=== PATIENT | female | born 1940 | race Caucasian/White ===

== ENCOUNTER → 2016-11-09 13:05 | Outpatient (CLI) | payer MEDICARE, OTHER ==
[2010-02-15 14:57] VITALS: BMI 21.3
== END | disposition home or self-care (01) ==
LOC: D.MAMMO 10:45
DX: Z12.31 Encounter for screening mammogram for malignant neoplasm of breast (principal)

== ENCOUNTER 2017-12-10 19:00 | Outpatient (CLI) | payer MEDICARE, OTHER ==
[2010-02-15 14:57] VITALS: BMI 21.3
== END 2017-12-10 23:59 | disposition home or self-care (01) ==
LOC: D.MAMMO 19:00
DX: Z12.31 Encounter for screening mammogram for malignant neoplasm of breast (principal)

== ENCOUNTER 2018-08-20 19:58 | Emergency (ER) | payer MEDICARE, OTHER ==
[~2018-08-20] VITALS: Ht 160 cm; Wt 59.1 kg
[2018-08-20 20:01] VITALS: Ht 160 cm; Wt 59.1 kg
[2018-08-20] MEDS ORDERED: TOPROL XL25 MG PO (20:04)
[2018-08-20] MEDS ORDERED: LEVO-T50 MCG PO (20:05)
[2018-08-20] MEDS ORDERED: NORVASC10 MG PO (20:05)
[2018-08-20 21:05] LABS: BASOPHILS 0.4 % (0-2); EOSINOPHILS 6.6 % (0-7); HEMATOCRIT 43.5 % (36.0-48.0); HEMOGLOBIN 15.3 g/dL (12-16); IMMATURE GRANULOCYTES 0.4 % (0-5); LYMPHOCYTES 52.7 % (15-50); MCH 31.9 pg (26.0-34.0); MCHC 35.2 g/dL (31.0-37.0); MCV 90.8 fL (80.0-100.0); MEAN PLATELET VOLUME 9.5 fL (7.4-10.4); MONOCYTES 7.7 % (2-11); NEUTROPHILS 32.2 % (40-80); PLATELET COUNT 432 10x3/uL (130-400); RBC 4.79 10x6/uL (4.00-5.40); RDW 12.8 % (11.5-14.5); WBC 10.9 10x3/uL (4.8-10.8)
[2018-08-20 21:15] LABS: ALBUMIN 4.2 g/dL (3.4-5.0); ALKALINE PHOSPHATASE 65 U/L (46-116); ALT (SGPT) 35 U/L (10-68); BILIRUBIN - TOTAL 0.28 mg/dL (0.2-1.3); CALC OSMOLALITY 276 mosm/kg (275-300); CALCIUM 9.1 mg/dL (8.5-10.1); CARBON DIOXIDE 28.1 mmol/L (21.0-32.0); CHLORIDE - SERUM 101 mmol/L (98-107); CREATININE - SERUM 0.8 mg/dL (0.6-1.3); GLUCOSE 140 mg/dL (74-106); POTASSIUM - SERUM 3.6 mmol/L (3.5-5.1); PROTEIN - SERUM 8.4 g/dL (6.4-8.2); SODIUM 138 mmol/L (136-145); UREA NITROGEN 11 mg/dL (7-18); eGFR NON AFRICAN AMERICAN 73 mL/min (90-120)
[2018-08-20 21:19] LABS: LIPASE 387 U/L (73-393)
[2018-08-20 21:20] LABS: TROPONIN-I < 0.017 ng/mL (0.000-0.060)
[2018-08-20 23:00] VITALS: BP 126/65
== END 2018-08-20 23:45 | disposition other institution (70) ==
LOC: D.ER 19:58
PROVIDERS: Family Medicine
DX: T18.128A Food in esophagus causing other injury, initial encounter (principal); I10 Essential (primary) hypertension

== ENCOUNTER 2019-09-06 09:45 | Outpatient (CLI) | payer MEDICARE, OTHER ==
[2018-08-20 20:01] VITALS: BMI 23.0
[~2019-09-06 09:45] MED LIST: LEVO-T50 MCG PO; NORVASC10 MG PO; TOPROL XL25 MG PO
== END 2019-09-06 09:46 | disposition home or self-care (01) ==
LOC: D.MAMMO 09:45
PROVIDERS: ATTEND Family Medicine
DX: Z12.31 Encounter for screening mammogram for malignant neoplasm of breast (principal)